=== PATIENT | female | born 1980 | race Two or more races ===

== ENCOUNTER 2019-01-07 07:28 | Inpatient (IN) | payer BC ==
[2019-01-07] MEDS ORDERED: Lactated Ringers 1000 ML Bag* 1,000 ML IV ONE (09:49)
[2019-01-07] MEDS ORDERED: Buffered Lidocaine 1% SYRIN* 1 ML/SYRINGE INTRADERM ONE (09:49)
--- NOTE | 2019-01-07 09:58 | HP ---
General Information - Reason for Visit Pt presents with small gush of fluid around 3:20 AM. Has had some continued leakage since, some pink-tinged. only complicated by AMA and borderline IUGR (although consistent with last baby that weighed 6lb 10oz). - General Information Maternal Age: 38 Grav: 4 Para: 1 SAB: 1 IEA: 1 Estimated Due Date: 01/13/19 Determined By: LMP Gestational Age in Weeks/Days: 39+1 Maternal Blood Type and Rh: O Positive - Results this Serology/RPR Result: Non-Reactive Rubella Result: Immune HBsAg Result: Negative HIV Result: Negative GBS Culture Result: Negative Past Medical History Delivery History: Hx Uncomplicated Vaginal Delivery Pertinent Past Medical History: See Records - back pain Pertinent Past Surgical History: See Records - none - Antepartal Records Antepartal Records: Reviewed, Complicated by: - AMA, mild IUGR Review of Systems Constitutional: Comfortable CV Complaint: No Respiratory: Shortness of Breath: No Gastrointestinal: No Nausea/Vomiting Genitourinary: Leaking Fluid, No Dysuria, No Bleeding - other than pink d/c Musculoskeletal: Contractions - fairly mild, irregular Neurological: No Headache Movement: Normal Exam Allergies/Adverse Reactions: Allergies No Known Allergies Allergy (Verified 01/07/19 08:28) BP 136/91, P87, T 98.1 Lab Values - Entire Visit: Laboratory Tests 01/07/19 07:50 Vag Amniotic Fld Detect Positive - Measurements Height: 5 ft 3 in Weight: 170 lb 6 oz Weight in lbs: [id number] Body Mass Index (BMI): 30.2 Pre- Weight: 130 lb Weight Gained This : 40 lbs and 6 ozs - Exam Breast: Breast Exam Deferred CVA: No CVA Tenderness Heart: Normal Rhythm/Heart Sounds HEENT: No Significant Findings Lungs: Clear Bilaterally Rectal: Rectal Exam Deferred - Abdominal Exam Abdomen Exam: Non-Tender, Fundal Height Consistent with Dates - Ultrasound/Biophysical Profile Ultrasound Status: Not Done Targeted Exam Findings Estimated Weight: 6 lb 8oz Cervical Exam: 3cm Effacement: 80% Station: -1 Presenting Part: Vertex Membrane Status: SROM Amniotic Fluid Evaluation: Gross Rupture, Positive ROM Plus Bleeding/Discharge: None EFM Findings - External Monitor Findings Baseline Heart Rate: 140 External Monitor Findings: Accelerations Present, No Pattern of Variable or Late Decelerations, Variability Moderate Contractions: Irregular, Mild Assessment/Plan - Assessment 39 wks with mild IUGR, very reassuring testing, now with SROM and likely early labor. BP also mildly elevated, so will check pre-e labs on admission. - Obstetrical Risk Factors Obstetrical Risk Factors: Gestational Hypertension, IUGR - Plan Plan: Admit - Anticipate Vaginal Delivery - will likely add pitocin if ctx are not increasing soon. - Date/Time of Admission Date of Admission: 01/07/19 Time of Admission: 10:00
[2019-01-07] MEDS ORDERED: Lactated Ringers 1000 ML Bag* 1,000 ML IV SCH ×2 (10:00→18:00)
[2019-01-07] MEDS ORDERED: Oxytocin in LR* 20 UNITS/1,000 ML BAG IVPB SCH ×2 (10:00→18:00)
[2019-01-07 11:42] LABS: Urine Benzodiazepine Screen None Detected (None Detect); Urine Opiates Screen None Detected (None Detect)
[2019-01-07 11:50] LABS: Albumin 3.5 g/dL (3.2-5.2); Albumin/Globulin Ratio 1.3 (1-3); BUN/Creatinine Ratio 21.2 (8-20); Calcium 9.2 mg/dL (8.6-10.3); EGFR African American 160.6 (>60); EGFR Non-African American 132.7 (>60); Globulin 2.8 g/dL (2-4); Potassium 3.8 mmol/L (3.5-5.0); Total Bilirubin 0.4 mg/dL (0.2-1.0); Total Protein 6.3 g/dL (6.4-8.9); Uric Acid 5.7 mg/dL (2.3-6.6)
[2019-01-07 14:40] LABS: ABS Eosinophils 0.1 10^3/ul (0-0.6); ABS Lymphocytes 1.6 10^3/ul (1.0-4.8); ABS Monocytes 0.4 10^3/ul (0-0.8); ABS Neutrophils 8.7 10^3/ul (1.5-7.7); Eosinophil % 0.5 %; Hematocrit 38 % (35-47); Hemoglobin 12.2 g/dL (12.0-16.0); Lymphocyte % 15.1 %; Mean Corpuscular HGB Conc 32 g/dL (31-36); Mean Corpuscular Hemoglobin 26 pg (27-31); Mean Corpuscular Volume 81 fL (80-97); Mean Platelet Volume 8.6 fL (7.4-10.4); Platelet Count 318 10^3/uL (150-450); Red Blood Count 4.63 10^6 /uL (3.70-4.87); Red Cell Distribution Width 14 % (10-15); White Blood Count 10.8 10^3/uL (3.5-10.8)
[2019-01-07] MEDS ORDERED: Witch Hazel PAD* JAR ONE (17:41)
[2019-01-07] MEDS ORDERED: Dibucaine 1% 28.35 GM TUBE ONE (17:42)
[2019-01-07] MEDS ORDERED: Acetaminophen TAB* 325 MG PO PRN (17:56)
[2019-01-07] MEDS ORDERED: Dibucaine 1% 28.35 GM TUBE PR PRN (17:56)
[2019-01-07] MEDS ORDERED: Witch Hazel PAD* JAR TOPICAL PRN (17:56)
--- NOTE | 2019-01-07 18:03 | PROCNOTE ---
[facility] OB: Delivery Note - Delivery A Date of : 01/07/19 Time of : 17:12 Sex: Female Weight at : 5 lb 9 oz Score 1 Minute: 8 Score 5 Minutes: 9 Gestational Age in Weeks and Days at Delivery: 39 Weeks and 1 Days Delivery Method: Spontaneous Vaginal Labor: Spontaneous Did Patient attempt ?: N/A, No Previous Amniotic Fluid: Clear Estimated Blood Loss: 200 Anesthesia/Analgesia: Nitrous-Labor Delivered By: Dontrell Anderson - Nursery Level of Nursery: Regular/Bedside - Perineum Perineal Injury: Perineal Laceration, 2nd Degree Perineal Repair: By Delivering Practioner - Events Delivery Events of Note: Pitocin During Labor - Additional Delivery Notes Additional Delivery Notes: Pt presented with SROM at 0320, ROM+ positive. Ctx were present but mild, so pitocin started about 9 hrs after SROM. Pt gradually entered labor, and then had rapid dilation/descent once she reached 6cm dilation. Nitrous oxide used for some pain mgmt. Pt pushed well for about 5 contractions to deliver head in a controlled fashion. Shoulders and body followed easily. placed on mother's abdomen and cried immediately. Cord doubly clamped and cut. Cord blood collection kit was used to collect blood and tissue. Small amt of cord blood collected for blood typing. IV pitocin started. Intact placenta delivered and there was minimal bleeding. 2nd degree perineal lac repaired with 3-0 Vicryl Rapide after injecting 1% lidocaine.
[2019-01-07] MEDS ORDERED: Simethicone TAB* 80 MG TAB.CHEW PO SCH (21:00)
[2019-01-08 08:52] LABS: ABS Basophils 0.1 10^3/ul (0-0.2); ABS Eosinophils 0.1 10^3/ul (0-0.6); ABS Lymphocytes 2.3 10^3/ul (1.0-4.8); ABS Monocytes 0.6 10^3/ul (0-0.8); ABS Neutrophils 9.3 10^3/ul (1.5-7.7); Eosinophil % 0.6 %; Hematocrit 36 % (35-47); Hemoglobin 11.9 g/dL (12.0-16.0); Lymphocyte % 18.4 %; Mean Corpuscular HGB Conc 33 g/dL (31-36); Mean Corpuscular Hemoglobin 27 pg (27-31); Mean Corpuscular Volume 80 fL (80-97); Mean Platelet Volume 7.9 fL (7.4-10.4); Platelet Count 304 10^3/uL (150-450); Red Cell Distribution Width 14 % (10-15); White Blood Count 12.3 10^3/uL (3.5-10.8)
[2019-01-08] MEDS ORDERED: Ferrous Gluconate TAB* 324 MG TAB PO SCH (09:00)
[2019-01-08] MEDS: Docusate CAP* 100 MG PO SCH ×4 (10:29→19:56)
[2019-01-08] MEDS: Ibuprofen TAB* 600 MG PO SCH ×2 (10:31→21:31)
[2019-01-09] MEDS ORDERED: Famotidine TAB* 20 MG PO ONE (07:36)
[2019-01-09] MEDS: Docusate CAP* 100 MG PO SCH ×2 (07:50→15:53)
[2019-01-09] MEDS: Ibuprofen TAB* 600 MG PO SCH ×3 (09:23→15:53)
[2019-01-09 13:03] VITALS: BP 113/59
== END 2019-01-09 16:00 | disposition home or self-care (01) | DRG 560 ==
LOC: MCHOBOUT 07:28 → MCHOB 09:50
PROVIDERS: ADMIT Obstetrics & Gynecology; ATTEND Obstetrics & Gynecology
PROC: 10E0XZZ Delivery of Products of Conception, External Approach (ICD-10-PCS; principal; 2019-01-07)
PROC: 4A1HXCZ Monitoring of Products of Conception, Cardiac Rate, External Approach (ICD-10-PCS; 2019-01-07)
PROC: 0KQM0ZZ Repair Perineum Muscle, Open Approach (ICD-10-PCS; 2019-01-07)
DX: O36.5930 Maternal care for other known or suspected poor fetal growth, third trimester, not applicable or unspecified (principal); Z37.0 Single live birth; O13.4 Gestational [pregnancy-induced] hypertension without significant proteinuria, complicating childbirth; O70.1 Second degree perineal laceration during delivery; Z3A.39 39 weeks gestation of pregnancy
CPT/HCPCS: 36415; 80053; 80307; 84112; 84550; 85025; 86850; 86900; 86901; A9270-GY